=== PATIENT | female | born 1980 | race Caucasian/White ===

== ENCOUNTER 2021-03-27 15:47 | Emergency (ER) | payer MEDICAID ==
[~2021-03-27] VITALS: Ht 152.4 cm; Wt 85.0 kg
[2021-03-27] MEDS ORDERED: DIPHENHYDRAMINE 25MG CAPSULE PO ONE (16:15)
[2021-03-27] MEDS ORDERED: PREDNISONE 20MG TABLET PO ONE (17:45)
[2021-03-27 19:05] LABS: BASOPHILS % 0.4 % (0.0-2.0); EOSINOPHILS % 0.5 % (0.0-5.0); HEMOGLOBIN. 15.1 g/dL (12.0-16.0); LYMPHOCYTES % 22.3 % (20.0-50.0); MEAN CORPUSCULAR HEMOGLOBIN 30.1 pg (28.0-32.0); MEAN CORPUSCULAR VOLUME 89.9 fL (81.0-99.0); MEAN PLATELET VOLUME 8.7 fl (7.4-10.4); MONOCYTES % 3.4 % (2.0-8.0); NEUTROPHILS % 73.4 % (40.0-76.0); PLATELET 356 x1000/uL (130-400); RED CELL DISTRIBUTION WIDTH 13.6 % (11.6-14.6)
[2021-03-27 19:12] LABS: CHLORIDE 109 mEq/L (98-107)
[2021-03-27 19:24] VITALS: BP 135/86
== END 2021-03-27 19:25 | disposition home or self-care (01) ==
LOC: ER 15:47
DX: L50.1 Idiopathic urticaria (principal); I10 Essential (primary) hypertension
CPT/HCPCS: 36415; 80053; 85025; 99283; Q0163